=== PATIENT | male | born 1930 | race Caucasian/White ===

== ENCOUNTER 2016-10-21 12:10 | Observation (INO) | payer OTHER, MEDICARE ==
[~2016-10-21] VITALS: Ht 182.9 cm; Wt 78.3 kg
[~2016-10-21 12:10] MED LIST: EFFIENT10 MG PO; FLOMAX0.4 MG PO; LIPITOR80 MG PO; SERTRALINE HCL100 MG PO
[2016-10-21 13:31] LABS: EOSINOPHIL (%) 0.5 % (0-5); EOSINOPHIL COUNT 0.1 K/uL (0-0.3); HEMATOCRIT 41.9 % (38.0-50.0); IMMATURE GRANULOCYTE (%) 0.3 % (0.0-0.7); INSTRUMENT ABS NEUTROPHIL CT 8.6 K/uL; LYMPHOCYTE COUNT 1.6 K/uL (1.0-2.8); MCH 30.7 PG (29.0-34.0); MCHC 32.9 G/DL (30.0-36.0); MCV 93.1 FL (86-99); MEAN PLAT.VOLUME 9.1 uM^3 (9.0-12.4); MONOCYTE (%) 10.4 % (3-12); MONOCYTE COUNT 1.2 K/uL (0-0.8); NEUTROPHIL (%) 74.4 % (45-76); NEUTROPHIL COUNT 8.6 K/uL (1.8-6.4); PLATELET COUNT 190 K/uL (156-360); RBC DIS.WIDTH-CV 12.8 % (11.8-14.6); RBC DIS.WIDTH-SD 43.8 % (39-53); WHITE BLOOD COUNT 11.6 K/uL (4.1-10.2)
[2016-10-21 13:39] LABS: CHLORIDE 106 mEq/L (99-109); POTASSIUM 4.5 mEq/L (3.7-5.4); SODIUM 140 mEq/L (136-147)
[2016-10-21 13:40] LABS: MAGNESIUM 2.1 mg/dL (1.3-2.7)
[2016-10-21 13:41] LABS: GLUCOSE 95 mg/dL (70-99)
[2016-10-21 13:42] LABS: ANION GAP 9 MEQ/L (2-14); INTER. NORMALIZED RATIO 1.1; PROTHROMBIN TIME 10.9 (9.2-11.2); PTT 23.3 (25-32)
[2016-10-21 13:45] LABS: GFR ESTIMATE (CALCULATED) > 59 mL/min/
[2016-10-21 13:46] LABS: UREA NITROGEN (BUN) 16 mg/dL (9-23)
[2016-10-21 13:51] LABS: TROP-I INTERPRETATION NEGATIVE; TROPONIN-I < 0.01 ng/mL (0.0-0.30)
[2016-10-21] MEDS ORDERED: PREDNISOLONE AC15 ML RIGHT EYE (16:04)
[2016-10-21] MEDS ORDERED: ASPIR-LOW81 MG PO (16:06)
[2016-10-21] MEDS ORDERED: MULTI VITAMIN1 EACH PO (16:07)
[2016-10-21] MEDS ORDERED: IRON325 M1 PO (16:07)
[2016-10-21 20:05] VITALS: BP 137/70
[2016-10-21 20:50] LABS: TROP-I INTERPRETATION NEGATIVE; TROPONIN-I 0.02 ng/mL (0.0-0.30)
[2016-10-21 23:59] VITALS: BP 90/48
[2016-10-22 02:53] LABS: TROP-I INTERPRETATION NEGATIVE; TROPONIN-I < 0.01 ng/mL (0.0-0.30)
[2016-10-22 03:20] VITALS: BP 101/55
[2016-10-22 07:27] VITALS: BP 108/59
[2016-10-22 08:42] LABS: HEMATOCRIT 40.3 % (38.0-50.0); MCH 30.6 PG (29.0-34.0); MCHC 32.5 G/DL (30.0-36.0); MCV 94.2 FL (86-99); MEAN PLAT.VOLUME 9.7 uM^3 (9.0-12.4); PLATELET COUNT 187 K/uL (156-360); RBC DIS.WIDTH-CV 13.2 % (11.8-14.6); RBC DIS.WIDTH-SD 45.1 % (39-53); RED BLOOD COUNT 4.28 M/uL (4.00-5.50); WHITE BLOOD COUNT 8.8 K/uL (4.1-10.2)
[2016-10-22 09:01] LABS: ALKALINE PHOSPHATASE 60 IU/L (3-129); ANION GAP 10 MEQ/L (2-14); CHLORIDE 104 MEQ/L (99-109); GFR ESTIMATE (CALCULATED) > 59 mL/min/; GLUCOSE 89 mg/dL (70-99); POTASSIUM 4.1 MEQ/L (3.7-5.4); SAMPLE HEMOLYSIS CHECK 0; SAMPLE ICTERIC CHECK 0; SAMPLE LIPEMIA CHECK 0; SODIUM 138 MEQ/L (136-147); TOTAL BILIRUBIN 0.8 MG/DL (0.0-1.0); UREA NITROGEN (BUN) 17 mg/dL (9-23)
[2016-10-22 12:12] LABS: ADD MIUA? NO; BILIRUBIN NEGATIVE; BLOOD NEGATIVE; COLOR YELLOW ((YELLOW)); GLUCOSE (STRIP) NEGATIVE; KETONES NEGATIVE; LEUKOCYTES NEGATIVE; NITRITE NEGATIVE; PROTEIN (STRIP) NEGATIVE; SPECIFIC GRAVITY 1.018 (1.000-1.030); UCUL ADDED? NO; UROBILINOGEN 0.2 MG/DL (0.2-1.0)
[2016-10-22 12:30] VITALS: BP 108/62; BP 176/81
== END 2016-10-22 14:08 | disposition home or self-care (01) ==
LOC: EME → EDBD 12:10 → EME 12:10 → 5WEST 15:32 → EDOF 15:32 → 5WEST 19:46
PROVIDERS: Emergency Medicine; Hospitalist; Physician Assistant
DX: R07.89 Other chest pain (principal); I25.10 Atherosclerotic heart disease of native coronary artery without angina pectoris; E78.5 Hyperlipidemia, unspecified; F32.9 Major depressive disorder, single episode, unspecified; N40.0 Benign prostatic hyperplasia without lower urinary tract symptoms
CPT/HCPCS: 71010; 71275; 80048; 80053; 81003; 83735; 84484; 85025; 85027; 85610; 85730; 93005; 99281; 99285; G0378; J1644

== ENCOUNTER 2017-01-21 14:28 | Emergency (ER) | payer OTHER, MEDICARE ==
[~2017-01-21] VITALS: Ht 177.8 cm; Wt 77.8 kg
[~2017-01-21 14:28] MED LIST changes: +ASPIR-LOW81 MG PO; +IRON325 M1 PO; +MULTI VITAMIN1 EACH PO; +PREDNISOLONE AC15 ML RIGHT EYE
[2017-01-21] MEDS ORDERED: ERYTHROMYC1 APPLICAT BOTH EYES (15:23)
[2017-01-21 15:36] VITALS: BP 128/82
== END 2017-01-21 15:30 | disposition home or self-care (01) ==
LOC: EME 14:28
DX: S05.02XA Injury of conjunctiva and corneal abrasion without foreign body, left eye, initial encounter (principal); S05.01XA Injury of conjunctiva and corneal abrasion without foreign body, right eye, initial encounter; Z98.890 Other specified postprocedural states; K21.9 Gastro-esophageal reflux disease without esophagitis; I25.2 Old myocardial infarction; Z95.5 Presence of coronary angioplasty implant and graft; F32.9 Major depressive disorder, single episode, unspecified; Z79.82 Long term (current) use of aspirin
CPT/HCPCS: 99281; 99284